=== PATIENT | female | born 1935 | race Caucasian/White ===

== ENCOUNTER 2020-01-10 13:09 | Emergency (ER) | payer MEDICARE ==
[~2020-01-10] VITALS: Ht 157.5 cm; Wt 70.4 kg
--- NOTE | 2020-01-10 13:42 | NUR ---
THIS IS AN 84 YR OLD FEMALE THAT WAS OUTSIDE GARDENING AND BENT OVER TO WORK. UPON STANDING SHE TURNED AND TRIPPED HITTNG HER HEAD ON A WALL. UNKNOWN LOC. BRUISING TO RIGHT EYE AND ABRAISIONS TO LEFT ARM RIGHT LEG AND ARM. NO OBVIOUS DEFORMITIES AND MOVING ALL EXTREMITIES WITHOUT DIFFICULTY.
[2020-01-10] MEDS ORDERED: DIPH,PERTUSS(ACELL),TET VAC/PF 0.5 ML IM-VACC ONE ×2 (14:00→14:19)
[2020-01-10] MEDS ORDERED: NEOSPORIN OINT. PKT 1 PACKET ONE (15:06)
[2020-01-10 15:19] VITALS: BP 166/77
--- NOTE | 2020-01-10 15:21 | NUR ---
BREAK RN: PT WOUNDS DRESSED PER ORDERS. PT TOLERATED WELL. MEDICATED PER MAR. DENIES ANY FURTHER NEEDS OR CONCERNS. PT MADE AWARE OF IMPENDING DISCHARGE. CALL LIGHT IN REACH.
== END 2020-01-10 15:41 | disposition home or self-care (01) ==
LOC: ED 15:25
DX: S00.10XA Contusion of unspecified eyelid and periocular area, initial encounter (principal); S50.812A Abrasion of left forearm, initial encounter; S50.811A Abrasion of right forearm, initial encounter; S80.811A Abrasion, right lower leg, initial encounter; R55 Syncope and collapse; W01.0XXA Fall on same level from slipping, tripping and stumbling without subsequent striking against object, initial encounter; Y93.89 Activity, other specified; Y92.098 Other place in other non-institutional residence as the place of occurrence of the external cause; Y99.8 Other external cause status
CPT/HCPCS: 70450; 70486; 90471; 90715; 99285